=== PATIENT | male | born 1955 | race Caucasian/White ===

== ENCOUNTER 2021-03-29 13:58 | Emergency (ER) | payer MEDICARE, BC, SELFPAY ==
[2021-03-29] VITALS (15 sets, daily range): BP systolic 122–163; BP diastolic 89–101; PULSE 91–103; RESP 14–40; TEMP 37.4; O2SAT 91–94
--- NOTE | 2021-03-29 14:30 | RT.EKG_ITS ---
APPROVED REPORT Exam: Resting ECG Reason for Exam: confusion Patient Location: E HR:101 bpm ECG Measurements Heart Rate 101 AXIS OK 202 P 43 QRSd 108 QRS -52 QT 355 T 15 QTc 461 Conclusion Sinus tachycardia...rate> 99 Left anterior fascicular block...axis(240,-40), init forces inf Probable left ventricular hypertrophy...multiple LVH criteria. Sinus. LAFB. No STEMI. I have reviewed and interpreted ECG and agree with software generated interpretation.
--- NOTE | 2021-03-29 14:33 | W.ED.GENAD ---
Discharge Plan Disposition Patient Disposition: AGAINST MEDICAL ADVICE Condition: Serious Discharge Details Clinical Impression: Fever, Atypical pneumonia, Transaminitis, Elevated troponin, History of liver transplant, Immunosuppression Primary Care Provider: Alia Lira ED Provider: Lorena Marinelli Home Meds and New Rx's Prescriptions: Continued lactulose 10 GM/15 ML solution 15 ml PO BID PRN Qty: 0 RF: 0 ciprofloxacin (mixture) [Cipro XR] 500 MG tablet, ER multiphase 24 hr 500 mg PO DAILY RF: 0 Xifaxan 550 MG tablet 550 mg PO BID RF: 0 thiamine mononitrate (vit B1) [Vitamin B-1 (mononitrate)] 100 MG tablet 100 mg PO QAM RF: 0 octreotide acetate 0.1 MG/ML solution 200 mcg IJ TID RF: 0 Centrum Complete 1 EACH tablet 1 tab PO DAILY RF: 0 Discharge Instructions Instructions: Fever in Adults (ED), Pneumonia (ED) Additional Instructions: You are leaving the hospital AGAINST MEDICAL ADVICE. Your lab work is very concerning and notes evidence of abnormalities in your heart enzyme called troponin, and your liver enzymes. Your CAT scan also notes findings concerning for potential Covid pneumonia. Without additional work-up including admission to the hospital, these findings may lead to disability or . Call your primary care doctor immediately tomorrow for follow-up. Return immediately to the emergency department if you develop any worsening or new concerning symptoms. 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 presents with 3 weeks of intermittent fevers, fatigue, confusion and decreased appetite. T-max 101 today. Blood pressure elevated, temp 99 3 on arrival. Patient is oriented x3 and able to answer questions. states that patient has been confused at times. Patient is not vaccinated for Covid and is refusing Covid testing here. No meningeal signs. Abdomen soft and nontender. Lungs clear. Differential diagnosis includes neutropenic fever, sepsis, UTI, gastroenteritis, COVID-19, pneumonia, viral syndrome, etc. Will obtain screening labs, CT imaging and labs from [facility] yesterday. Labs here today reviewed. Normal white blood cell count 8. Normal neutrophils. Potassium 2.9. Bicarb 19.4. Anion gap 14.6. BUN 19. Creatinine 1.4. AST 359. ALT 298. Alk phos 128. Troponin 0.09. EKG notes a rate of 101, sinus, no STEMI. Urinalysis notes blood and protein but negative for infection. Review review of outpatient labs from [facility] yesterday note an AST of 332 and an ALT of 262. CT chest notes: IMPRESSION: 1. Moderate to severe bilateral and diffuse acute airspace disease, most concerning for atypical viral pneumonia in the appropriate clinical setting. Commonly reported imaging features of COVID-19 pneumonia are present. Other processes such as influenza pneumonia and organizing pneumonia, as can be seen with drug toxicity and connective tissue disease, can cause a similar imaging pattern. (Reference: Benny) 2. Prominent AP window lymph node, most in favor with a reactive lymph node. 3. Incidental findings as detailed above. CT abdomen notes: IMPRESSION: 1. Normal appearing transplanted liver. 2. Minimal intrahepatic biliary ductal dilation appears to be of physiologic etiology. Consider correlation with biliary levels if clinically warranted. 3. Urinary bladder wall findings are most probably related to decompressed state and sequela of chronic cystitis/bladder outlet obstruction. Consider correlation with urinalysis to exclude any acute UTI. 4. Findings in the bilateral femoral veins are felt to be related to contrast mixing artifact. Chronic eccentric thrombus is felt less likely. This could be correlated with duplex ultrasound if clinically warranted. 5. Incidental findings as detailed above. Patient repeatedly taking down his mask, walking to the door in his room and opening the door and repeatedly asked to go back into his room. IV and oral potassium ordered and patient refused. Patient is requesting to leave. He was informed of his CT findings and has repeatedly refused Covid testing here. Discussed that his presentation could be consistent with Covid pneumonia which can progress significantly and would be helpful to know if he is positive for COVID-19 to start potential treatment. Patient is refusing to stay. He was given his lab work and imaging results. It was discussed that it would be recommended that he stay in the hospital and potentially be transferred to a tertiary facility considering his history of liver transplant with immunosuppression. His sirolimus could be potential for his lung findings, however with his report of fever and fatigue over the last few weeks, suspect potentially a new infectious process. Discussed with over the phone who discussed with patient over the phone in the room. Despite our efforts, the patient has decided to leave against medical advice. He has a normal mental status and full decisional capacity. The patient understands his condition and the risks of leaving AMA, including BUT NOT LIMITED TO permanent disability, , etc., and has had an opportunity to ask questions about his medical condition. The patient has been informed that he may return for care at any time, and has been referred to his local medical physician and [facility] for follow up RICH. Also discussed with the daughter over the phone after patient left the ED. She was informed of patient's findings and recommendations for him to stay in the hospital. She was encouraged that he can return at any time for continued evaluation and admission. Medical Records Medical records reviewed: Yes I reviewed the patient's medical records. Imaging Data Radiologic Study: Radiologist's impression: CT Chest With Contrast; Diagnostic Exam date and time: 03/29/2021 3:57 PM Age: 65 years old Clinical indication: Fever and nausea and vomiting; Prior surgery; Patient HX: Fever, weakness, vomiting, diarrhea; Additional info: Assess liver transplant, R/O pneumonia TECHNIQUE: Imaging protocol: Diagnostic computed tomography of the chest with contrast. 3D rendering (Not supervised by radiologist): MIP and/or 3D reconstructed images were created by the technologist. COMPARISON: CR CHEST 2 VIEWS PA,LAT 12/24/2015 3:44 PM FINDINGS: Trachea: Linear mucoid material in the upper trachea. Lungs: Scattered, bilateral, and diffuse ground-glass and crazy paving airspace consolidations are appreciated throughout the lungs. Findings are most pronounced in the bilateral upper lobes and lower lobes. Pleural spaces: Unremarkable. No pneumothorax. No pleural effusion. Heart: There is calcification of the aortic valve annulus. Trace pericardial effusion is most probably physiologic in the absence of clinical symptomatology. Heart is of normal size and morphology. There is mild atherosclerotic calcification of the coronary arteries. Pulmonary arteries: Normal in course and caliber. 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 Left vertebral artery arises directly from the aortic arch, a normal variant. The aorta demonstrates mild atherosclerotic calcification. No acute pathology in the aorta. Lymph nodes: 1.2 cm AP window lymph node (image 199 series 5). No other concerning mediastinal, hilar, or axillary adenopathy by CT size criteria. Bones/joints: No acute skeletal pathology. Mild multilevel degenerative changes of the spine, as manifested by multilevel anterior osteophytes and multilevel decrease in intervertebral disc space. Soft tissues: Unremarkable. Other findings: Remainder of the airways are completely patent. IMPRESSION: 1. Moderate to severe bilateral and diffuse acute airspace disease, most concerning for atypical viral pneumonia in the appropriate clinical setting. Commonly reported imaging features of COVID-19 pneumonia are present. Other processes such as influenza pneumonia and organizing pneumonia, as can be seen with drug toxicity and connective tissue disease, can cause a similar imaging pattern. (Reference: Benny) 2. Prominent AP window lymph node, most in favor with a reactive lymph node. 3. Incidental findings as detailed above. REFERENCES: Benny Villa, et al., Radiological Society of [place] Expert Consensus Statement on Reporting Chest CT Findings Related to COVID-19. Endorsed by the Society of Thoracic Radiology, the [place] [employer], and RSNA. Published September 08, 2019. CT Abdomen And Pelvis With Contrast Exam date and time: 03/29/2021 3:57 PM Age: 65 years old Clinical indication: Fever and nausea and vomiting; Prior surgery; Patient HX: Fever, weakness, vomiting, diarrhea; Additional info: Assess liver transplant, R/O pneumonia TECHNIQUE: Imaging protocol: Computed tomography of the abdomen and pelvis with contrast. 3D rendering (Not supervised by radiologist): MIP and/or 3D reconstructed images were created by the technologist. COMPARISON: CR CHEST 2 VIEWS PA,LAT 12/24/2015 3:44 PM FINDINGS: Diaphragm: A small hiatal hernia is present. Liver: Transplanted liver appears unremarkable. Specifically, no liver masses or abnormal areas of liver enhancement. There is normal morphology to the transplanted liver parenchyma. Gallbladder and bile ducts: Prior cholecystectomy. Mild intra-and extrahepatic biliary ductal dilation is most likely the sequela of prior cholecystectomy in the absence of clinical symptomatology. Pancreas: Normal. No ductal dilation. Spleen: Normal. No splenomegaly. Adrenal glands: 1.4 cm fat containing left adrenal lesion favors a fat containing adenoma. Consider correlation with dedicated adrenal protocol MRI in a nonemergent setting. Adrenal glands are otherwise unremarkable. Kidneys and ureters: Normal. No hydronephrosis. Stomach and bowel: No bowel wall thickening, obstruction, or other acute pathology. Diffuse colonic diverticulosis is present. Enteroenteric anastomosis in the right lower quadrant without complications. Appendix: A normal appendix is identified. Intraperitoneal space: Unremarkable. No free air. No significant fluid collection. Vasculature: The vasculature demonstrates diffuse mild atherosclerotic calcification. Portal venous system appears completely patent. Eccentric questionable filling defects within the bilateral femoral veins. Lymph nodes: Unremarkable. No enlarged lymph nodes. Urinary bladder: The bladder is decompressed. Circumferential urinary bladder wall thickening. Sub mucosal fat deposition in the urinary bladder wall. Reproductive: The prostate demonstrates nonspecific parenchymal calcifications. Bones/joints: No acute skeletal pathology. Mild multilevel degenerative changes of the spine, as manifested by multilevel anterior osteophytes and multilevel decrease in intervertebral disc space. Soft tissues: There is a nonobstructing left inguinal hernia. Several bowel mccullough adhesed to the ventral abdominal wall, non obstructed or strangulated. Other findings: Mild perivesical stranding. IMPRESSION: 1. Normal appearing transplanted liver. 2. Minimal intrahepatic biliary ductal dilation appears to be of physiologic etiology. Consider correlation with biliary levels if clinically warranted. 3. Urinary bladder wall findings are most probably related to decompressed state and sequela of chronic cystitis/bladder outlet obstruction. Consider correlation with urinalysis to exclude any acute UTI. 4. Findings in the bilateral femoral veins are felt to be related to contrast mixing artifact. Chronic eccentric thrombus is felt less likely. This could be correlated with duplex ultrasound if clinically warranted. 5. Incidental findings as detailed above. Lab Data Lab results reviewed: Yes I reviewed the patient's lab results. Labs: 03/29/21 15:43 Blood Blood Culture - Pending 03/29/21 14:45 Blood Blood Culture - Pending Laboratory Tests Range/Units 03/29/21 03/29/21 03/29/21 14:32 14:45 14:45 WBC (4.4-10.8) 10^3/uL RBC (4.36-5.78) 10^6/uL Hgb (13.5-17.5) g/dL Hct (40.0-50.0) % MCV (80-95) fL MCH (27.0-33.0) pg MCHC (32.0-36.0) % RDW (11.8-14.1) % Plt Count (130-400) 10^3/uL MPV (8.0-11.0) fL Immature Gran % Neutrophils % Lymphocytes % Monocytes % Eosinophils % Basophils % Nucleated RBC % % Absolute Neutrophils (1.2-6.7) 10^3/uL Absolute Lymphocytes (1.2-3.4) 10^3/uL Absolute Monocytes (0.1-0.8) 10^3/uL Absolute Eosinophils (0.0-0.7) 10^3/uL Absolute Basophils (0.0-0.2) 10^3/uL VBG Lactate (0.6-1.4) mmol/L 1.3 Sodium (136-145) mmol/L 134 L Potassium (3.5-5.1) mmol/L 2.9 L Chloride (98-107) mmol/L 100 Carbon Dioxide (21.0-32.0) mmol/L 19.4 L Anion Gap (3-11) mmol/L 14.6 H BUN (7-18) mg/dL 19 H Creatinine (0.70-1.30) mg/dL 1.4 H Estimated GFR/1.73 m2 (mL/min/1.73m2) 50.86 Glucose (74-106) mg/dL 156 H Calcium (8.5-10.1) mg/dL 8.4 L Magnesium (1.8-2.4) mg/dL 1.8 Total Bilirubin (0.2-1.0) mg/dL 0.4 AST (15-37) U/L 359 H ALT (16-63) U/L 298 H Alkaline Phosphatase (46-116) U/L 128 H Troponin I (<0.06) ng/mL 0.09 H* Total Protein (6.4-8.2) g/dL 6.9 Albumin (3.4-5.0) g/dL 2.5 L Urine Color (Yellow) Urine Clarity (Clear) Urine pH (5-8) Ur Specific Artemas (1.005-1.025) Urine Protein (Negative) mg/dL Urine Ketones (Negative) mg/dL Urine Blood (Negative) Urine Nitrite (Negative) Urine Bilirubin (Negative) Urine Urobilinogen (Up TO 0.2) EU/dL Ur Leukocyte Esterase (Negative) Urine RBC (0-2) HPF Urine WBC (0-5) HPF Ur Epithelial Cells (Negative) HPF Urine Crystals (Negative) HPF Urine Bacteria (Negative) HPF Urine Casts (Negative) LPF Urine Mucus (Negative) Ur Culture Indicated? Urine Glucose (Negative) mg/dL COVID-19 Source Cancelled SARS-CoV-2 (PCR) Cancelled Range/Units 03/29/21 03/29/21 14:45 15:30 WBC (4.4-10.8) 10^3/uL 8.03 RBC (4.36-5.78) 10^6/uL 5.50 Hgb (13.5-17.5) g/dL 15.6 Hct (40.0-50.0) % 45.8 MCV (80-95) fL 83.3 MCH (27.0-33.0) pg 28.4 MCHC (32.0-36.0) % 34.1 RDW (11.8-14.1) % 14.5 H Plt Count (130-400) 10^3/uL 184 MPV (8.0-11.0) fL 11.1 H Immature Gran % 0.6 Neutrophils % 88.6 Lymphocytes % 7.7 Monocytes % 3.0 Eosinophils % 0.0 Basophils % 0.1 Nucleated RBC % % 0 Absolute Neutrophils (1.2-6.7) 10^3/uL 7.11 H Absolute Lymphocytes (1.2-3.4) 10^3/uL 0.62 L Absolute Monocytes (0.1-0.8) 10^3/uL 0.24 Absolute Eosinophils (0.0-0.7) 10^3/uL 0.00 Absolute Basophils (0.0-0.2) 10^3/uL 0.01 VBG Lactate (0.6-1.4) mmol/L Sodium (136-145) mmol/L Potassium (3.5-5.1) mmol/L Chloride (98-107) mmol/L Carbon Dioxide (21.0-32.0) mmol/L Anion Gap (3-11) mmol/L BUN (7-18) mg/dL Creatinine (0.70-1.30) mg/dL Estimated GFR/1.73 m2 (mL/min/1.73m2) Glucose (74-106) mg/dL Calcium (8.5-10.1) mg/dL Magnesium (1.8-2.4) mg/dL Total Bilirubin (0.2-1.0) mg/dL AST (15-37) U/L ALT (16-63) U/L Alkaline Phosphatase (46-116) U/L Troponin I (<0.06) ng/mL Total Protein (6.4-8.2) g/dL Albumin (3.4-5.0) g/dL Urine Color (Yellow) Sienna Urine Clarity (Clear) Clear Urine pH (5-8) 6.0 Ur Specific Artemas (1.005-1.025) >= 1.030 H Urine Protein (Negative) mg/dL >=300 H Urine Ketones (Negative) mg/dL Negative Urine Blood (Negative) Moderate H Urine Nitrite (Negative) Negative Urine Bilirubin (Negative) Negative Urine Urobilinogen (Up TO 0.2) EU/dL 0.2 Ur Leukocyte Esterase (Negative) Negative Urine RBC (0-2) HPF 5-10 H Urine WBC (0-5) HPF 0-2 Ur Epithelial Cells (Negative) HPF Negative Urine Crystals (Negative) HPF Few Amorphous Urine Bacteria (Negative) HPF Negative Urine Casts (Negative) LPF 10-20 CoarseGranular Urine Mucus (Negative) Trace Ur Culture Indicated? No Urine Glucose (Negative) mg/dL Negative COVID-19 Source SARS-CoV-2 (PCR) ECG Data Attestation: I personally reviewed and interpreted this ECG (s) as follows: Interpretation: Rate of 101, sinus, left anterior fascicular block. No STEMI. HPI General Mode of arrival: ambulatory. Date/Time Provider Initiated Documentation: 03/29/21 14:09. Limitations to Documentation: no limitations. Information obtained by: patient and family. HPI Narrative: Patient is a 65-year-old male with a history of hypertension and liver transplant secondary to hepatocellular carcinoma in 2016 who presents with 3 weeks of intermittent fevers, worse today and associated with decreased appetite, insomnia, confusion and disorientation. states that patient is normally very sharp and has been more slowed in his responses and confused at times. Patient is oriented x3 and able to answer questions. He states he has had intermittent vomiting which is mainly food, clear bile. He has had intermittent episodes of watery brown diarrhea. He is not vaccinated and does not want to Covid vaccination and denies any known exposure to Covid. He denies cough but states that he has had an intermittent cough. Patient denies shortness of breath, chest pain, abdominal pain or urinary symptoms. states that patient has monthly lab work done at [facility] for his history of liver transplant and last had labs drawn yesterday. Related Data Home Medications Medication Instructions Recorded Confirmed lactulose 15 ml PO BID PRN #0 02/15/16 06/11/16 Xifaxan 550 mg PO BID 04/22/16 06/11/16 ciprofloxacin (mixture) [Cipro XR] 500 mg PO DAILY 04/22/16 06/11/16 thiamine mononitrate (vit B1) 100 mg PO QAM 04/22/16 03/29/21 [Vitamin B-1 (mononitrate)] octreotide acetate 200 mcg IJ TID 05/18/16 06/11/16 Centrum Complete 1 tab PO DAILY 05/24/16 03/29/21 Previous Rx's Medication Instructions Recorded lactulose 15 ml PO BID PRN #0 02/15/16 Allergies Allergy/AdvReac Type Severity Reaction Status Date / Time No Known Allergies Allergy Unverified 03/29/21 14:19 General Stated Complaint: GenMedical CARLYN: 3 Review of Systems All systems reviewed & are unremarkable except as noted in HPI and below Constitutional Constitutional: Reports as per HPI, Denies chills, Reports fatigue, Reports fever(s) and Reports poor appetite Eyes Eyes: Denies blurry vision ENT Ears, Nose, Mouth, and Throat: Denies dizziness, Denies sore throat and Denies throat swelling Cardiovascular Cardiovascular: Denies chest pain and Denies dyspnea Respiratory Respiratory: Denies cough and Denies dyspnea Gastrointestinal Gastrointestinal: Denies abdominal pain, Reports diarrhea and Reports vomiting Genitourinary Genitourinary: Denies hematuria and Denies dysuria Musculoskeletal Musculoskeletal: Denies back pain and Denies numbness Integumentary/Breasts Skin/Breast: Denies lesions and Denies rash Neurologic Neurologic: Denies dizziness, Denies localized weakness and Denies numbness Endocrine Endocrine: Reports fatigue Allergic/Immunologic Allergic/Immunologic: Denies throat swelling [facility] Medical History (Updated 03/29/21 @ 17:25 by Lorena Marinelli DO) Ascites Cancer, hepatocellular Cirrhosis of liver Hepatitis C treated and last viral count was 0 Hypertension Surgical History (Updated 03/29/21 @ 17:25 by Lorena Marinelli DO) Hernia Repair, Incisional with small bowel resection liver tumour embolization paracenthesis multiple- currently 2 x a week Family History (Updated 05/08/15 @ 13:56 by Lashonda Lr MD) Other Colon cancer GI malignancy Kidney cancer, primary, with metastasis from kidney to other site Social History Smoking/Tobacco Use Status: Former Tobacco Use Smoking risk assessment performed?: Yes Alcohol Intake: former Drug use: Occasionally Substance use type: marijuana Details: no longer smokes or drinks Do you feel safe at home: Yes Do you feel safe in your relationship?: Yes Exam Const General: no acute distress HENMT Head: normal to inspection Face and sinus: normal facial exam Eyes General: appearance normal, both eyes and all related structures EOM: EOM intact bilaterally Neck Neck: normal visual inspection and No submandibular swelling Lymphatic: no lymphadenopathy noted Chest Chest: normal inspection of the chest and no tenderness Resp Effort & Inspection: normal respiratory effort and able to speak in complete sentences Auscultation: clear to auscultation bilaterally Cardio Rate: regular rate Rhythm: regular rhythm GI Inspection: normal to inspection Palpation: soft, not firm, not rigid and nontender Auscultation: normal bowel sounds Skin General skin exam: no rashes or lesions noted Neuro General: patient alert, patient awake, patient oriented x3, moves all extremities, no meningeal signs and no focal motor deficits Cognition: normal cognition Speech: speech normal Motor: muscle tone normal throughout Sensory Exam: no sensory deficits noted Extrem General: normal to inspection, full ROM, capillary refill normal, no calf tenderness bilaterally and no edema Psych Appearance: grossly normal Mental Status: mental status grossly normal Speech and Movement: speech and movement normal Affect: normal affect Course Vital Signs Vital signs: Vital Signs Temperature 99.3 F 03/29/21 14:02 Pulse 103 H 03/29/21 14:02 Respiratory Rate 28 H 03/29/21 14:02 Blood Pressure 163/101 H 03/29/21 14:02 Pulse Oximetry 93 03/29/21 14:02 Temperature 99.3 F 03/29/21 14:02 Temperature Source Skin 03/29/21 14:02 Pulse 103 H 03/29/21 14:02 Respiratory Rate 28 H 03/29/21 14:02 Respiratory Effort 03/29/21 14:22 Blood Pressure 163/101 H 03/29/21 14:02 Pulse Oximetry 93 03/29/21 14:02 Oxygen Delivery Method Room Air 03/29/21 14:02 Oxygen Flow Rate 0 03/29/21 14:02 Pain Level 7 03/29/21 14:02 Lab/Test Results Lab/Test Results: 03/29/21 14:31 Blood Blood Culture - Pending 03/29/21 14:31 Blood Blood Culture - Pending
[2021-03-29 14:53] LABS: Lactate 1.3 mmol/L (0.6-1.4)
[2021-03-29 15:11] LABS: ALT 298 U/L (16-63); AST 359 U/L (15-37); Albumin 2.5 g/dL (3.4-5.0); Alkaline Phosphatase 128 U/L (46-116); Anion Gap 14.6 mmol/L (3-11); BUN 19 mg/dL (7-18); Bilirubin, Total 0.4 mg/dL (0.2-1.0); CO2 19.4 mmol/L (21.0-32.0); CREATININE 1.4 mg/dL (0.70-1.30); Calcium 8.4 mg/dL (8.5-10.1); Chloride 100 mmol/L (98-107); Estimated GFR 50.86 (mL/min/1.73m2); Glucose 156 mg/dL (74-106); Magnesium 1.8 mg/dL (1.8-2.4); Sodium 134 mmol/L (136-145); Total Protein 6.9 g/dL (6.4-8.2)
[2021-03-29 15:13] LABS: Abs Immature Grans 0.05 10^3/uL (0.0-0.06); Absolute Basophil Count 0.01 10^3/uL (0.0-0.2); Absolute Lymphocyte Count 0.62 10^3/uL (1.2-3.4); Absolute Monocyte Count 0.24 10^3/uL (0.1-0.8); Absolute Neutrophil Count 7.11 10^3/uL (1.2-6.7); Basophils % 0.1; HCT 45.8 % (40.0-50.0); HGB 15.6 g/dL (13.5-17.5); Immature Grans % 0.6; Lymphocytes % 7.7; MCH 28.4 pg (27.0-33.0); MCHC 34.1 % (32.0-36.0); MCV 83.3 fL (80-95); MPV 11.1 fL (8.0-11.0); Neutrophils % 88.6; Nucleated RBC 0 %; Platelet Count 184 10^3/uL (130-400); RDW 14.5 % (11.8-14.1); RDW-SD 44.2 fL; WBC 8.03 10^3/uL (4.4-10.8)
--- NOTE | 2021-03-29 15:15 | DI.CT_ITS ---
Exam(s) CT CHEST/ABD/PEL W EXAM: CT CHEST/ABD/PEL W CLINICAL HISTORY: fever, weakness, vomiting, diarrhea. TECHNIQUE: Imaging Protocol: Axial computed tomography images with coronal and sagittal reformatted images were created and reviewed CONTRAST MATERIAL: Intravenous: Omnipaque 350 Contrast volume:100 ml Oral: / no COMPARISON: CT ABD PELVIS WITH CONTRAST from 11/04/2015 FINDINGS: CHEST: Pulmonary arteries: Normal size. No gross emboli. Tracheobronchial tree: Patent where visualized. Mediastinum and Marquita: No dominant adenopathy or fluid collection. Pulmonary parenchyma: Bilateral ground-glass opacities. Pleura: No effusion or pneumothorax. Lymph nodes: Within normal limits. Aorta: Thoracic portion non-dilated. Heart: Normal size. Small pericardial effusion. Degenerative changes. Bones: Unremarkable for age. No lytic or blastic lesions. Soft tissues: Mild bilateral gynecomastia. ABDOMEN: Liver: Status post liver transplant. Normal density. No measurable mass. Portal and hepatic veins patent. Gallbladder and biliary tract: Status post cholecystectomy. No radiodense calculus or dilation. Pancreas: Normal density, no abnormal calcifications or inflammatory process. Spleen: Normal. Kidneys: Normal size, contour and axis. No radiodense stones or obstructive uropathy. No masses seen. Adrenal glands: No masses seen. Aorta: Abdominal portion non-dilated. Lymph nodes: Within normal limits. Soft tissues: Unremarkable. PELVIS: Bladder: Nearly empty, not well evaluated. Bowel: Anastomosis right lower quadrant. Colon contains fluid. Appendix normal. No obstruction or bowel wall thickening. Peritoneal cavity: No ascites, collection or mesenteric inflammatory response. Bones: Unremarkable for age.. Reproductive organs: Within normal limits. IMPRESSION: Bilateral ground-glass opacities. Findings could indicate Cob[place] 19 pneumonia. Intact liver transplant. Fluid-filled colon without abnormal wall thickening or evidence of obstruction. RADIATION DOSE DELIVERED: 1,650.6mGy.cm Total DLP DATA REPOSITORY: All CT scans at this facility are submitted to the National Radiology Data Registry (NRDR) Dose Index Registry (DIR) with the [employer] (ACR). RADIATION OPTIMIZATION: All CT scans at this facility use at least one of these dose optimization te chniques: automated exposure control; mA and/or kV adjustment per patient size (includes targeted exa ms where dose is matched to clinical indication); or iterative reconstruction.
--- NOTE | 2021-03-29 15:16 | NUR.NOTE ---
Nursing Note:LATE ENTRY: Upon admit to ED room #4 , access called to ED to ask about non vaccinated coming in, as she was concerned because she is the primary caregiver. Charge nurse Gloria was in room with pt completing triage. Gloria was asked about whether pt was able to provide accurate and appropriate responses, she stated yes. Additionally, charge nurse stated she had already addressed concern of and was asked to wait outside.
[2021-03-29 15:23] LABS: Potassium 2.9 mmol/L (3.5-5.1); Troponin I 0.09 ng/mL (<0.06)
[2021-03-29 15:36] LABS: Bilirubin Negative (Negative); Blood Moderate (Negative); Clarity Clear (Clear); Glucose Negative (Negative); Ketones Negative (Negative); Leukocyte Esterase Negative (Negative); Nitrite Negative (Negative); Specific Gravity >= 1.030 (1.005-1.025); Urobilinogen 0.2 EU/dL (Up TO 0.2)
[2021-03-29 15:54] LABS: Bacteria Negative HPF (Negative); Crystals Few Amorphous HPF (Negative); Epithelial Cells Negative HPF (Negative); Mucus Trace (Negative); WBC 0-2 HPF (0-5)
[2021-03-29 15:55] LABS: C & S Indicated? No
[2021-03-29] MEDS: Omnipaque 350 MG/ML 100 ML BTL IJ (15:59)
[2021-03-29] MEDS: Normal Saline - Diluent 50 ML VIAL IV (15:59)
--- NOTE | 2021-03-29 16:20 | NUR.NOTE ---
patient refused COVID swab x3 Nursing Note:
--- NOTE | 2021-03-29 16:24 | NUR.NOTE ---
aware of patient refusal in getting IV fluid, K+ IV and PO Nursing Note:
--- NOTE | 2021-03-29 16:57 | DI.VRAD_ITS ---
PROCEDURE INFORMATION: Exam: CT Chest With Contrast; Diagnostic Exam date and time: 03/29/2021 3:57 PM Age: 65 years old Clinical indication: Fever and nausea and vomiting; Prior surgery; Patient HX: Fever, weakness, vomiting, diarrhea; Additional info: Assess liver transplant, R/O pneumonia TECHNIQUE: Imaging protocol: Diagnostic computed tomography of the chest with contrast. 3D rendering (Not supervised by radiologist): MIP and/or 3D reconstructed images were created by the technologist. COMPARISON: CR CHEST 2 VIEWS PA,LAT 12/24/2015 3:44 PM FINDINGS: Trachea: Linear mucoid material in the upper trachea. Lungs: Scattered, bilateral, and diffuse ground-glass and crazy paving airspace consolidations are appreciated throughout the lungs. Findings are most pronounced in the bilateral upper lobes and lower lobes. Pleural spaces: Unremarkable. No pneumothorax. No pleural effusion. Heart: There is calcification of the aortic valve annulus. Trace pericardial effusion is most probably physiologic in the absence of clinical symptomatology. Heart is of normal size and morphology. There is mild atherosclerotic calcification of the coronary arteries. Pulmonary arteries: Normal in course and caliber. 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 Left vertebral artery arises directly from the aortic arch, a normal variant. The aorta demonstrates mild atherosclerotic calcification. No acute pathology in the aorta. Lymph nodes: 1.2 cm AP window lymph node (image 199 series 5). No other concerning mediastinal, hilar, or axillary adenopathy by CT size criteria. Bones/joints: No acute skeletal pathology. Mild multilevel degenerative changes of the spine, as manifested by multilevel anterior osteophytes and multilevel decrease in intervertebral disc space. Soft tissues: Unremarkable. Other findings: Remainder of the airways are completely patent. IMPRESSION: 1. Moderate to severe bilateral and diffuse acute airspace disease, most concerning for atypical viral pneumonia in the appropriate clinical setting. Commonly reported imaging features of COVID-19 pneumonia are present. Other processes such as influenza pneumonia and organizing pneumonia, as can be seen with drug toxicity and connective tissue disease, can cause a similar imaging pattern. (Reference: Benny) 2. Prominent AP window lymph node, most in favor with a reactive lymph node. 3. Incidental findings as detailed above. REFERENCES: Benny Villa, et al., Radiological Society of [place] Expert Consensus Statement on Reporting Chest CT Findings Related to COVID-19. Endorsed by the Society of Thoracic Radiology, the [employer], and RSNA. Published September 08, 2019. PROCEDURE INFORMATION: Exam: CT Abdomen And Pelvis With Contrast Exam date and time: 03/29/2021 3:57 PM Age: 65 years old Clinical indication: Fever and nausea and vomiting; Prior surgery; Patient HX: Fever, weakness, vomiting, diarrhea; Additional info: Assess liver transplant, R/O pneumonia TECHNIQUE: Imaging protocol: Computed tomography of the abdomen and pelvis with contrast. 3D rendering (Not supervised by radiologist): MIP and/or 3D reconstructed images were created by the technologist. COMPARISON: CR CHEST 2 VIEWS PA,LAT 12/24/2015 3:44 PM FINDINGS: Diaphragm: A small hiatal hernia is present. Liver: Transplanted liver appears unremarkable. Specifically, no liver masses or abnormal areas of liver enhancement. There is normal morphology to the transplanted liver parenchyma. Gallbladder and bile ducts: Prior cholecystectomy. Mild intra-and extrahepatic biliary ductal dilation is most likely the sequela of prior cholecystectomy in the absence of clinical symptomatology. Pancreas: Normal. No ductal dilation. Spleen: Normal. No splenomegaly. Adrenal glands: 1.4 cm fat containing left adrenal lesion favors a fat containing adenoma. Consider correlation with dedicated adrenal protocol MRI in a nonemergent setting. Adrenal glands are otherwise unremarkable. Kidneys and ureters: Normal. No hydronephrosis. Stomach and bowel: No bowel wall thickening, obstruction, or other acute pathology. Diffuse colonic diverticulosis is present. Enteroenteric anastomosis in the right lower quadrant without complications. Appendix: A normal appendix is identified. Intraperitoneal space: Unremarkable. No free air. No significant fluid collection. Vasculature: The vasculature demonstrates diffuse mild atherosclerotic calcification. Portal venous system appears completely patent. Eccentric questionable filling defects within the bilateral femoral veins. Lymph nodes: Unremarkable. No enlarged lymph nodes. Urinary bladder: The bladder is decompressed. Circumferential urinary bladder wall thickening. Sub mucosal fat deposition in the urinary bladder wall. Reproductive: The prostate demonstrates nonspecific parenchymal calcifications. Bones/joints: No acute skeletal pathology. Mild multilevel degenerative changes of the spine, as manifested by multilevel anterior osteophytes and multilevel decrease in intervertebral disc space. Soft tissues: There is a nonobstructing left inguinal hernia. Several bowel mccullough adhesed to the ventral abdominal wall, non obstructed or strangulated. Other findings: Mild perivesical stranding. IMPRESSION: 1. Normal appearing transplanted liver. 2. Minimal intrahepatic biliary ductal dilation appears to be of physiologic etiology. Consider correlation with biliary levels if clinically warranted. 3. Urinary bladder wall findings are most probably related to decompressed state and sequela of chronic cystitis/bladder outlet obstruction. Consider correlation with urinalysis to exclude any acute UTI. 4. Findings in the bilateral femoral veins are felt to be related to contrast mixing artifact. Chronic eccentric thrombus is felt less likely. This could be correlated with duplex ultrasound if clinically warranted. 5. Incidental findings as detailed above. Dictated and Authenticated by: Matthew Deluca MD. Ordering:TERELL Carrillo MD
--- NOTE | 2021-03-29 17:08 | NUR.NOTE ---
patient took himself off the monitor Nursing Note:
== END 2021-03-29 17:30 | disposition left against medical advice (07) ==
PROVIDERS: Emergency Provider Physician Assistant; PCP Internal Medicine
DX: R50.9 Fever, unspecified (principal); J18.9 Pneumonia, unspecified organism; R79.89 Other specified abnormal findings of blood chemistry; Z94.4 Liver transplant status; D84.81 Immunodeficiency due to conditions classified elsewhere; Z53.29 Procedure and treatment not carried out because of patient's decision for other reasons
CPT/HCPCS: 36415; 74177; 80053; 87040; 87635; 93005; 99285; 71260; 81003; 81015; 83605; 83735; 84484; 85025; 93010; 99284; J3490